=== PATIENT | male | born 1970 ===

== ENCOUNTER 2016-11-16 01:37 | Emergency (ER) | payer SELFPAY ==
[2016-11-16 01:49] VITALS: BP 155/79
--- NOTE | 2016-11-16 02:03 | ED ---
Skin Complaint - HPI Summary HPI Summary: Pt here w/ cut on top of head while at work tonight - accidentally bumped head on a sharp counter edge. Had a good bit of bleeding which has stopped. No pain beyond wound which is small. Denies LOC, SPRINGER, change in vision, photosensitivity , nausea, vomiting, numbness, tingling, weakness, syncope, dizziness or neck pain. Imms are UTD. - History of Current Complaint Chief Complaint: EDLacSutureRecheck Time Seen by Provider: 11/16/16 01:49 Stated Complaint: HEAD LAC Hx Obtained From: Patient Pain Intensity: 1 PMH/Surg Hx/FS Hx/Imm Hx Previously Healthy: Yes Endocrine/Hematology History: Denies: Hx Anticoagulant Therapy, Hx Blood Disorders, Autoimmune Disease - Immunization History Immunizations Up to Date: Yes Infectious Disease History: No Infectious Disease History: Denies: Hx of Known/Suspected MRSA, Traveled Outside the in Last 30 Days - Family History Known Family History: Positive: Other - MOM- A. FIB, COUMADIN ALLERGY - Social History Occupation: Employed Full-time - [employer] Alcohol Use: Weekly Hx Substance Use: No Substance Use Type: Reports: None Hx Tobacco Use: No Smoking Status (MU): Never Smoked Tobacco Review of Systems Constitutional: Negative Eyes: Negative ENT: Negative Cardiovascular: Negative Respiratory: Negative Gastrointestinal: Negative Positive: no symptoms reported Musculoskeletal: Negative Skin: Other - SEE hpi Neurological: Negative Psychological: Normal All Other Systems Reviewed And Are Negative: Yes Physical Exam Triage Information Reviewed: Yes Vital Signs On Initial Exam: Initial Vitals Temp Pulse Resp BP Pulse Ox 98.7 F 95 20 155/79 96 11/16/16 01:47 11/16/16 01:47 11/16/16 01:47 11/16/16 01:47 11/16/16 01:47 Vital Signs Reviewed: Yes Appearance: Positive: Well-Appearing, No Pain Distress, Obese Skin: Positive: Warm - SMALL V-SHAPED LACERATION OVER TOP OF FRONTAL SCALP - DRESSING IN PLACE W/ SCANT BLOOD - NO ACTIVE BLEEDING OR OOZING - WOUND IS 0.25CM IN LENGTH AND 1MM DEEP Head/Face: Positive: Normal Head/Face Inspection - OTHERWISE NORMAL Eyes: Positive: Normal, EOMI, DORIS, Conjunctiva Clear ENT: Positive: Normal ENT inspection, Hearing grossly normal, Pharynx normal, TMs normal - NO HEMOTYMPANUM. Negative: Nasal drainage Dental: Negative: Dental Fracture @ Neck: Positive: Supple, Nontender, No Lymphadenopathy Respiratory/Lung Sounds: Positive: Breath Sounds Present Cardiovascular: Positive: Normal Musculoskeletal: Positive: Normal, Strength/ROM Intact Neurological: Positive: Normal, Sensory/Motor Intact, Alert, Oriented to Person Place, Time, CN Intact II-III Psychiatric: Positive: Normal Procedures - Procedure Summary Procedure Summary: WOUND CLEANED WITH ANTISEPTIC AND STERILE WATER - TRIPLE ANBX OINTMENT APPLIED - PT TOLERATED WELL Diagnostics - Vital Signs Vital Signs Temp Pulse Resp BP Pulse Ox 11/16/16 01:47 98.7 F 95 20 155/79 96 - Laboratory Lab Statement: Any lab studies that have been ordered have been reviewed, and results considered in the medical decision making process. Course/Dx - Diagnoses Provider Diagnoses: Scalp laceration, Head injury Discharge - Discharge Plan Condition: Stable Disposition: HOME Patient Education Materials: Laceration (ED), Head Injury (ED) Forms: *Work Release Additional Instructions: Gently wash wound with soap and water daily - reapply triple antibiotic ointment until healed Follow-up with PCP this week for wound recheck *If you develop redness, swelling, purulent drainage, fever, chills, return to ED *If you develop danger signs of head injury, return to ED. See HEAD INJURY handout for details.
== END 2016-11-16 02:12 | disposition home or self-care (01) ==
LOC: ED 01:37
DX: S01.01XA Laceration without foreign body of scalp, initial encounter (principal); S09.90XA Unspecified injury of head, initial encounter; W22.8XXA Striking against or struck by other objects, initial encounter; Y92.9 Unspecified place or not applicable
CPT/HCPCS: 99281